=== PATIENT | female | born 1980 | race American Indian/Alaskan Native ===

== ENCOUNTER 2020-01-02 05:49 | Day surgery (SDC) | payer OTHER ==
--- NOTE | 2020-01-01 14:38 | Short Stay Summary ---
Short Stay Documentation Date of service: 01/02/20 Narrative H&P: 39y/o with findings of HGSIL on cervical biopsy. The patient has elected for surgical management of her dysplasia. Patient has been reassessed/reevaluated/re-examined. H&P has been reviewed. No interval changes. - History Principal diagnosis: Cervical dysplasia Past Medical History: No medical history Past Surgical History: Social history: single - Allergies and Medications Current Medications: Allergies No Known Allergies Allergy (Verified 12/26/19 16:25) Home Medications Medication Instructions Recorded Confirmed Last Taken Type No Known Home Medications [No 09/21/19 12/26/19 Unknown History Reported Home Medications] - Physical exam General appearance: no acute distress Integumentary: no rash HEENT: Atraumatic Lungs: Clear to auscultation Breasts: deferred Heart: Regular rate Gastrointestinal: normal Female Genitourinary: deferred Rectal Exam: deferred Extremities: no ischemia Neurological: Normal gait - Brief post op/procedure progress note Date of procedure: 01/02/20 Pre-op diagnosis: Cervical dysplasia Post-op diagnosis: same Procedure: Loop electrocautery excision procedure Endocervical curettage Anesthesia: GETA Surgeon: KELSEY COLLADO Estimated blood loss: minimal (150 mL) Pathology: list (Ectocervical specimen and endocervical curettings) Specimen disposition: to lab Condition: stable - Hospital course Hospital course: The patient was admitted the day of surgery and underwent a LEEP procedure. P christian see operative note for details of surgery. Her postoperative course was uneventful. - Disposition Condition at discharge: Good Disposition: DC- TO HOME OR SELFCARE - Discharge Diagnoses (1) Cervical dysplasia Status: Acute Short Stay Discharge Plan Activity: other (Pelvic rest for 4 weeks) Diet: regular Additional Instructions: Follow-up with Dr. Collado in 4 weeks Prescriptions: Ibuprofen [Motrin] 800 mg PO Q8HR PRN #60 tablet PRN Reason: Pain, Mild (1-3) HYDROcodone/APAP 5-325 [[place] 5/325] 1 each PO Q6HR PRN #20 tablet PRN Reason: Pain
[~2020-01-02 05:49] MED LIST: ceFAZolin/Water 2 GM/20 ML 2 GM/20 ML SYRINGE IV NR
[2020-01-02] MEDS ORDERED: ceFAZolin/STERILE WATER 2 GM/20 ML SYRINGE IV NR (06:11)
[2020-01-02] MEDS ORDERED: LACTATED RINGERS 1,000 ML IV SCH (06:12)
[2020-01-02] MEDS ORDERED: BACTERIOSTATIC SODIUM CHLORIDE 0.9% 30 ML VIAL INFILTRATI ONE (06:26)
[2020-01-02] MEDS ORDERED: MIDAZOLAM 2 MG/2 ML INJ IV NR (07:04)
--- NOTE | 2020-01-02 07:09 | Anesthesia Day of Surgery ---
Anesthesia Day of Surgery - Day of Surgery Patient Examined: Yes Patient H&P Reviewed: Yes Patient is NPO: Yes
[2020-01-02] MEDS ORDERED: fentaNYL 100 MCG/2 ML INJ IV PRN (07:10)
[2020-01-02] MEDS ORDERED: ONDANSETRON 4 MG/2 ML INJ IV PRN (07:10)
--- NOTE | 2020-01-02 07:10 | Anesthesia Consultation ---
Anesthesia Consult and Med Hx Date of service: 01/02/20 - Airway Anesthetic Teeth Evaluation: Good ROM Head & Neck: Adequate Mental/Hyoid Distance: Adequate Mallampati Class: Class III Intubation Access Assessment: Probably Good - Pre-Operative Health Status ASA Pre-Surgery Classification: ASA1 Proposed Anesthetic Plan: General - Central Nervous System Hx Psychiatric Problems: No - Hematic Hx Anemia: Yes (Past hx) - Other Systems Hx Cancer: No
[2020-01-02] MEDS ORDERED: propofoL 200 MG/20 ML VIAL IV ONE (07:18)
[2020-01-02] MEDS ORDERED: HYDROmorphone 1 MG/1 ML INJ ONE (07:18)
[2020-01-02] MEDS ORDERED: LIDOCAINE MPF (2%) 20 MG/1 ML VIAL 5 ML ONE (07:19)
[2020-01-02] MEDS ORDERED: FERRIC SUBSULFATE TOPICAL SOLN 8 ML TP ONE ×2 (07:24→08:45)
[2020-01-02] MEDS ORDERED: POTASSIUM IODIDE/IODINE (LUGOLS) 30 ML TP ONE ×2 (07:24→08:44)
[2020-01-02] MEDS ORDERED: ONDANSETRON 4 MG/2 ML INJ ONE (08:14)
--- NOTE | 2020-01-02 08:29 | Operative Report ---
Operative Report Operative Report: Date of procedure: January 02, 2020 Pre-operative diagnosis: High-grade squamous intraepithelial lesion involving the cervix Post-operative diagnosis: Same as above Procedure name(s): Loop electrocautery excision procedure; endocervical curettage Surgeon: Annie Lopez M.D. Estimated blood loss: 150 mL Anesthesia: General endotracheal anesthesia Findings Multiparous cervix with multifocal disease Pathology: Ectocervix and endocervical curettings Indication: 39-year-old -0-2-3 with a history of severe cervical dysplasia. The patient elected to undergo surgical management. Procedure The patient was taken to the operating room and given general tracheal anesthesia without complication. She was prepped and draped in a normal sterile fashion. The patient was placed in high lithotomy position. A coated bivalve speculum was placed in the patient's vagina. Lugol's solution was placed on the cervix with areas of nonstaining ectocervical portions. The 20 x 15 mm loop was used. The ectocervix was then excised with the loop device. An endocervical curettage was then performed. The cervical bed was then cauterized with the Bovie. Monsel solution was applied to the surgical site. The vaginal instruments were then removed. The patient was then successfully extubated and taken to the recovery room in stable condition. All sponge laps and needle counts correct x2.
[2020-01-02] MEDS ORDERED: SODIUM CHLORIDE 0.9% IRR 1,500 ML BOTTLE IR ONE (08:45)
[2020-01-02 09:32] VITALS: BP 121/84
--- NOTE | 2020-01-02 18:03 | Post Anesthesia Evaluation ---
- Post Anesthesia Evaluation Patient Participated: Yes Airway Patent: Yes Stable Respiratory Function: Yes Nausea/Vomiting: No Temp > 96.8F: Yes Pain Manageable: Yes Adequeate Hydration: Yes Anesthesia Complications: No Block Receding Appropriately: Not Applicable Patient on Ventilator: No
== END 2020-01-02 10:15 | disposition home or self-care (01) ==
LOC: OR 05:49
PROVIDERS: ATTEND Obstetrics & Gynecology
DX: R87.613 High grade squamous intraepithelial lesion on cytologic smear of cervix (HGSIL) (principal); Z79.899 Other long term (current) drug therapy; D64.9 Anemia, unspecified; Z98.890 Other specified postprocedural states
CPT/HCPCS: 57522; 81025; 88305; 88307; 88313; J0690; J1170; J2250; J2405; J2704; J7120